=== PATIENT | male | born 1960 | race African-American/Black ===

== ENCOUNTER 2025-08-29 05:20 | Emergency (ER) | payer MEDICARE, MEDICAID ==
[~2025-08-29] VITALS: Ht 182.9 cm; Wt 77.4 kg
[2025-08-29 05:25] VITALS: O2SAT 98
[2025-08-29] MEDS: KETOROLAC 30MG/ML VIAL IM ONE (06:33)
[2025-08-29 06:53] VITALS: BP 171/91; PULSE 75; RESP 17; TEMP 36.6; O2SAT 98
[2025-08-29 07:08] LABS: BASOPHILS % 0.7 % (0.0-2.0); EOSINOPHILS % 4.4 % (0.0-5.0); HEMATOCRIT. 45.1 % (42.0-52.0); HEMOGLOBIN. 15.4 g/dL (14.0-18.0); LYMPHOCYTES % 34.9 % (20.0-50.0); MEAN PLATELET VOLUME 7.4 fl (7.4-10.4); MONOCYTES % 7.4 % (2.0-8.0); NEUTROPHILS % 52.6 % (40.0-76.0); PLATELET 257 x1000/uL (130-400); RED BLOOD CELL COUNT 4.89 mill/uL (4.7-6.1); RED CELL DISTRIBUTION WIDTH 13.7 % (11.6-14.6)
[2025-08-29 07:32] LABS: CREATININE 1.1 mg/dL (0.6-1.3); UREA NITROGEN BLOOD 9 mg/dL (9-23)
[2025-08-29 07:34] LABS: CLARITY URINE CLEAR (CLEAR); COLOR URINE YELLOW (YELLOW); GLUCOSE URINE NEGATIVE (NEGATIVE); KETONES URINE NEGATIVE (NEGATIVE); LEUKOCYTE ESTERASE URINE NEGATIVE (NEGATIVE); NITRITE URINE NEGATIVE (NEGATIVE); OCCULT BLOOD URINE NEGATIVE (NEGATIVE); PH URINE 6.0 (4.5-8.0); PROTEIN URINE NEGATIVE (NEGATIVE); SPECIFIC GRAVITY URINE 1.013 (1.005-1.030); UROBILINOGEN URINE 0.2 E.U./dL (0.2-1.0)
[2025-08-29 07:34] LABS: ASPARTATE AMINOTRANSFERASE 20 IU/L (<34); BILIRUBIN TOTAL 0.7 mg/dL (0.1-1.0); PROTEIN TOTAL 7.3 g/dL (6.0-8.3)
[2025-08-29] MEDS ORDERED: IOHEXOL-300 100 ML BOTTLE ONE (11:19)
== END 2025-08-29 09:24 | disposition home or self-care (01) ==
LOC: ER 05:20
DX: R10.33 Periumbilical pain (principal); I70.8 Atherosclerosis of other arteries; M54.9 Dorsalgia, unspecified; R05.9 Cough, unspecified; Z88.8 Allergy status to other drugs, medicaments and biological substances
CPT/HCPCS: 99285; 74177; 71045; 80053; 81003; 83690; 85025; 36415; 73502; 96372; J1885; Q9967

== ENCOUNTER 2025-09-21 09:39 | Emergency (ER) | payer MEDICARE, MEDICAID ==
[~2025-09-21] VITALS: Ht 182.9 cm; Wt 77.0 kg
[2025-09-21 09:44] VITALS: O2SAT 100
[2025-09-21 10:12] LABS: BASOPHILS % 0.9 % (0.0-2.0); EOSINOPHILS % 4.5 % (0.0-5.0); HEMATOCRIT. 45.3 % (42.0-52.0); HEMOGLOBIN. 15.0 g/dL (14.0-18.0); LYMPHOCYTES % 35.5 % (20.0-50.0); MEAN PLATELET VOLUME 7.7 fl (7.4-10.4); MONOCYTES % 7.0 % (2.0-8.0); NEUTROPHILS % 52.1 % (40.0-76.0); PLATELET 282 x1000/uL (130-400); RED BLOOD CELL COUNT 4.84 mill/uL (4.7-6.1); RED CELL DISTRIBUTION WIDTH 13.7 % (11.6-14.6)
[2025-09-21 10:31] LABS: CREATININE 1.1 mg/dL (0.6-1.3)
[2025-09-21 10:32] LABS: UREA NITROGEN BLOOD 9 mg/dL (9-23)
[2025-09-21] MEDS ORDERED: IBUP-1455 MT (10:45)
[2025-09-21] MEDS ORDERED: BENZ1LOZ73 MM (10:45)
[2025-09-21] MEDS ORDERED: AMOX1TAB16 MT (10:45)
[2025-09-21 10:49] LABS: CLARITY URINE CLEAR (CLEAR); COLOR URINE YELLOW (YELLOW); GLUCOSE URINE NEGATIVE (NEGATIVE); KETONES URINE NEGATIVE (NEGATIVE); LEUKOCYTE ESTERASE URINE NEGATIVE (NEGATIVE); NITRITE URINE NEGATIVE (NEGATIVE); OCCULT BLOOD URINE NEGATIVE (NEGATIVE); PH URINE 6.0 (4.5-8.0); PROTEIN URINE NEGATIVE (NEGATIVE); SPECIFIC GRAVITY URINE 1.006 (1.005-1.030); UROBILINOGEN URINE 1.0 E.U./dL (0.2-1.0)
[2025-09-21 11:00] VITALS: BP 140/79; PULSE 66; RESP 18; TEMP 36.7; O2SAT 96
== END 2025-09-21 11:02 | disposition home or self-care (01) ==
LOC: ER 10:23
DX: J02.9 Acute pharyngitis, unspecified (principal); K02.9 Dental caries, unspecified; Z88.8 Allergy status to other drugs, medicaments and biological substances
CPT/HCPCS: 36415; 80048; 81003; 85025; 99283